=== PATIENT | male | born 1990 | race Caucasian/White ===

== ENCOUNTER 2019-07-01 21:40 | Emergency (ER) | payer SELFPAY ==
[~2019-07-01] VITALS: Ht 165.1 cm; Wt 81.8 kg
[2019-07-01] MEDS ORDERED: LIDOCAINE-MPF 1%, 5ML ONE (23:27)
--- NOTE | 2019-07-01 23:29 | NUR ---
PT STABLE, AWAITING MD FOR HAND. NO OTHER NEEDS.
[2019-07-02] MEDS ORDERED: BACITRACIN OINT 500U/GM, 28GM TP ONE (00:30)
[2019-07-02] MEDS ORDERED: CEFAZOLIN 1,000 MG IM ONE (00:30)
[2019-07-02] MEDS ORDERED: CEFAZOLIN 1,000 MG ONE (00:41)
[2019-07-02 00:46] VITALS: BP 153/86
--- NOTE | 2019-07-02 00:54 | NUR ---
cms intact after emt wound care. pt medicated, sent with paperwork with officer. pt verbalized understaning.
== END 2019-07-02 00:57 | disposition home or self-care (01) ==
LOC: ED 07-02 00:51
DX: S62.623B Displaced fracture of middle phalanx of left middle finger, initial encounter for open fracture (principal); S62.661A Nondisplaced fracture of distal phalanx of left index finger, initial encounter for closed fracture; S62.665A Nondisplaced fracture of distal phalanx of left ring finger, initial encounter for closed fracture; S61.313A Laceration without foreign body of left middle finger with damage to nail, initial encounter; F17.200 Nicotine dependence, unspecified, uncomplicated; X58.XXXA Exposure to other specified factors, initial encounter; Y93.89 Activity, other specified; Y92.69 Other specified industrial and construction area as the place of occurrence of the external cause; Y99.8 Other external cause status
CPT/HCPCS: 11740; 11760; 12041; 73130; 96372; 99285; J0690